=== PATIENT | female | born 1950 | race Caucasian/White ===

== ENCOUNTER 2018-11-17 00:21 | Observation (INO) | payer MEDICARE, OTHER ==
[2018-11-17] MEDS ORDERED: Albuterol/Ipratropium 3.0-0.5 MG/3 ML Neb Soln NEB ONE (00:28)
[2018-11-17] MEDS ORDERED: methylPREDNISolone Sodium Succinate 125 MG/2 ML SDV IVPUSH ONE ×2 (00:28→02:07)
[2018-11-17] MEDS ORDERED: Sodium Chloride 0.9% 1,000 ML IV SCH (00:30)
--- NOTE | 2018-11-17 00:30 | EDM.PDOC ---
ED HPI GENERAL MEDICAL PROBLEM - General Chief Complaint: Respiratory Problem Stated Complaint: AMBULANCE Time Seen by Provider: 11/17/18 00:30 Source of Information: Reports: Patient - History of Present Illness INITIAL COMMENTS - FREE TEXT/NARRATIVE: HISTORY AND PHYSICAL: History of present illness: [Patient arrives via EMS Complains of shortness of breath tripoding on EMS arrival to her home he did provide a neb treatment with improvement wheeze No chest pain headache dizziness palpitation no bowel or urine symptoms no fever nausea vomiting chills sweats ] Review of systems: As per history of present illness and below otherwise all systems reviewed and negative. Past medical history: As per history of present illness and as reviewed below otherwise noncontributory. Surgical history: As per history of present illness and as reviewed below otherwise noncontributory. Social history: No reported history of drug or alcohol abuse. Family history: As per history of present illness and as reviewed below otherwise noncontributory. Physical exam: HEENT: Atraumatic, normocephalic, pupils reactive, negative for conjunctival pallor or scleral icterus, mucous membranes moist, throat clear, neck supple, nontender, trachea midline. Lungs: Clear to auscultation, breath sounds equal bilaterally, chest nontender. Heart: S1S2, regular, negative for clicks, rubs, or JVD. Abdomen: Soft, nondistended, nontender. Negative for masses or hepatosplenomegaly. Negative for costovertebral tenderness. Pelvis: Stable nontender. Genitourinary: Deferred. Rectal: Deferred. Extremities: Atraumatic, negative for cords or calf pain. Neurovascular unremarkable. Neuro: Awake, alert, oriented. Cranial nerves II through XII unremarkable. Cerebellum unremarkable. Motor and sensory unremarkable throughout. Exam nonfocal. Diagnostics: [CBC CMP UA troponin EKG Chest 1 view ] Therapeutics: [Normal saline 1 25 mL per hour Solu-Medrol DuoNeb ] Impression: [ hypoxia Home oxygen dependent generally on 3 L nasal cannula Chronic history of baseline ] Definitive disposition and diagnosis as appropriate pending reevaluation and review of above. - Related Data Allergies Allergy/AdvReac Type Severity Reaction Status Date / Time No Known Allergies Allergy Verified 11/17/18 00:31 Home Meds: Home Meds Allopurinol [Zyloprim] 100 mg PO DAILY 11/17/18 [History] Carvedilol [Coreg] 25 mg PO BID 11/17/18 [History] Furosemide [Lasix] 20 mg PO ASDIRECTED 11/17/18 [History] Simvastatin [Zocor] 40 mg PO BEDTIME 11/17/18 [History] amLODIPine [Norvasc] 2.5 mg DAILY 11/17/18 [History] hydrALAZINE HCl [Hydralazine HCl] 75 mg PO BID 11/17/18 [History] ED ROS GENERAL - Review of Systems Review Of Systems: See Below ED EXAM, GENERAL - Physical Exam Exam: See Below Course - Vital Signs Last Recorded V/S: Last Vital Signs Temp 96.0 F 11/17/18 00:28 Pulse 89 11/17/18 00:28 Resp 26 H 11/17/18 00:28 BP 141/68 H 11/17/18 00:28 Pulse Ox 96 11/17/18 00:28 - Orders/Labs/Meds Orders: Active Orders 24 hr Category Date Time Status EKG Documentation Completion [RC] STAT Care 11/17/18 00:28 Active RT Aerosol Therapy [RC] ASDIRECTED Care 11/17/18 00:28 Active Chest 1V Frontal [CR] Stat Exams 11/17/18 00:28 Taken B-TYPE NATRIURETIC PEPTIDE,BNP [CHEM] Stat Lab 11/17/18 00:40 Received CULTURE BLOOD [BC] Stat Lab 11/17/18 00:40 Received CULTURE BLOOD [BC] Stat Lab 11/17/18 00:51 Received Sodium Chloride 0.9% [Normal Saline] 1,000 ml Med 11/17/18 00:30 Active IV STAT Blood Culture x2 Reflex Set [OM.PC] Stat Oth 11/17/18 00:28 Ordered Medication Orders Sodium Chloride (Normal Saline) 1,000 mls @ 125 mls/hr IV STAT ROSANNE Last Admin: 11/17/18 00:37 Dose: 125 mls/hr Labs: Laboratory Tests 11/17/18 11/17/18 11/17/18 Range/Units 00:28 00:40 00:40 WBC 10.71 (4.0-11.0) K/uL RBC 3.98 L (4.30-5.90) M/uL Hgb 10.9 L (12.0-16.0) g/dL Hct 37.2 (36.0-46.0) % MCV 93.5 (80.0-98.0) fL MCH 27.4 (27.0-32.0) pg MCHC 29.3 L (31.0-37.0) g/dL RDW Std Deviation 47.2 (28.0-62.0) fl RDW Coeff of Izabela 14 (11.0-15.0) % Plt Count 351 (150-400) K/uL MPV 9.80 (7.40-12.00) fL Neut % (Auto) 77.9 (48.0-80.0) % Lymph % (Auto) 10.1 L (16.0-40.0) % [place] % (Auto) 7.4 (0.0-15.0) % Eos % (Auto) 4.2 (0.0-7.0) % Baso % (Auto) 0.4 (0.0-1.5) % Neut # (Auto) 8.4 H (1.4-5.7) K/uL Lymph # (Auto) 1.1 (0.6-2.4) K/uL [place] # (Auto) 0.8 (0.0-0.8) K/uL Eos # (Auto) 0.5 (0.0-0.7) K/uL Baso # (Auto) 0.0 (0.0-0.1) K/uL INR 0.91 Sodium (136-145) mmol/L Potassium (3.5-5.1) mmol/L Chloride (98-107) mmol/L Carbon Dioxide (21.0-32.0) mmol/L BUN (7.0-18.0) mg/dL Creatinine (0.6-1.0) mg/dL Est Cr Clr Drug Dosing mL/min Estimated GFR (MDRD) ml/min Glucose (74-106) mg/dL Calcium (8.5-10.1) mg/dL Total Bilirubin (0.2-1.0) mg/dL AST (15-37) IU/L ALT (14-63) IU/L Alkaline Phosphatase (46-116) U/L Troponin I (0.000-0.056) ng/mL Total Protein (6.4-8.2) g/dL Albumin (3.4-5.0) g/dL Globulin (2.6-4.0) g/dL Albumin/Globulin Ratio (0.9-1.6) Urine Color YELLOW Urine Appearance SLT CLOUDY Urine pH 6.0 (5.0-8.0) Ur Specific [place] >= 1.030 (1.001-1.035) Urine Protein 100 H (NEGATIVE) mg/dL Urine Glucose (UA) NEGATIVE (NEGATIVE) mg/dL Urine Ketones NEGATIVE (NEGATIVE) mg/dL Urine Occult Blood NEGATIVE (NEGATIVE) Urine Nitrite NEGATIVE (NEGATIVE) Urine Bilirubin SMALL H (NEGATIVE) Urine Ictotest NEGATIVE Urine Urobilinogen 0.2 (<2.0) EU/dL Ur Leukocyte Esterase NEGATIVE (NEGATIVE) Urine RBC 1-2 (0-2/HPF) Urine WBC 1-2 (0-5/HPF) Ur Epithelial Cells FEW (NONE-FEW) Amorphous Sediment LIGHT (NEGATIVE) Urine Bacteria FEW (NEGATIVE) 11/17/18 Range/Units 00:40 WBC (4.0-11.0) K/uL RBC (4.30-5.90) M/uL Hgb (12.0-16.0) g/dL Hct (36.0-46.0) % MCV (80.0-98.0) fL MCH (27.0-32.0) pg MCHC (31.0-37.0) g/dL RDW Std Deviation (28.0-62.0) fl RDW Coeff of Izabela (11.0-15.0) % Plt Count (150-400) K/uL MPV (7.40-12.00) fL Neut % (Auto) (48.0-80.0) % Lymph % (Auto) (16.0-40.0) % [place] % (Auto) (0.0-15.0) % Eos % (Auto) (0.0-7.0) % Baso % (Auto) (0.0-1.5) % Neut # (Auto) (1.4-5.7) K/uL Lymph # (Auto) (0.6-2.4) K/uL [place] # (Auto) (0.0-0.8) K/uL Eos # (Auto) (0.0-0.7) K/uL Baso # (Auto) (0.0-0.1) K/uL INR Sodium 142 (136-145) mmol/L Potassium 4.9 (3.5-5.1) mmol/L Chloride 104 (98-107) mmol/L Carbon Dioxide 30.3 (21.0-32.0) mmol/L BUN 32 H (7.0-18.0) mg/dL Creatinine 2.0 H (0.6-1.0) mg/dL Est Cr Clr Drug Dosing 22.27 mL/min Estimated GFR (MDRD) 24.8 ml/min Glucose 218 H (74-106) mg/dL Calcium 9.3 (8.5-10.1) mg/dL Total Bilirubin 0.4 (0.2-1.0) mg/dL AST 9 L (15-37) IU/L ALT 13 L (14-63) IU/L Alkaline Phosphatase 109 (46-116) U/L Troponin I 0.054 (0.000-0.056) ng/mL Total Protein 7.8 (6.4-8.2) g/dL Albumin 3.0 L (3.4-5.0) g/dL Globulin 4.8 H (2.6-4.0) g/dL Albumin/Globulin Ratio 0.6 L (0.9-1.6) Urine Color Urine Appearance Urine pH (5.0-8.0) Ur Specific [place] (1.001-1.035) Urine Protein (NEGATIVE) mg/dL Urine Glucose (UA) (NEGATIVE) mg/dL Urine Ketones (NEGATIVE) mg/dL Urine Occult Blood (NEGATIVE) Urine Nitrite (NEGATIVE) Urine Bilirubin (NEGATIVE) Urine Ictotest Urine Urobilinogen (<2.0) EU/dL Ur Leukocyte Esterase (NEGATIVE) Urine RBC (0-2/HPF) Urine WBC (0-5/HPF) Ur Epithelial Cells (NONE-FEW) Amorphous Sediment (NEGATIVE) Urine Bacteria (NEGATIVE) Meds: Medications Generic Name Dose Route Start Last Admin Trade Name Freq PRN Reason Stop Dose Admin Sodium Chloride 1,000 mls @ 125 mls/hr 11/17/18 00:30 11/17/18 00:37 Normal Saline IV 125 mls/hr STAT ROSANNE Administration Discontinued Medications Generic Name Dose Route Start Last Admin Trade Name Freq PRN Reason Stop Dose Admin Albuterol/Ipratropium 3 ml 11/17/18 00:28 11/17/18 00:37 Duoneb 3.0-0.5 Mg/3 Ml NEB 11/17/18 00:29 3 ml ONETIME ONE Administration Methylprednisolone Sodium Succinate 125 mg 11/17/18 00:28 11/17/18 00:37 Solu-Medrol IVPUSH 11/17/18 00:29 125 mg ONETIME ONE Administration Departure - Departure Time of Disposition: 01:40 Disposition: Refer to Observation Condition: Fair Clinical Impression: COPD exacerbation, Hypoxia - Discharge Information Referrals: Dewayne Denis MD [Primary Care Provider] - Forms: ED Department Discharge - My Orders Last 24 Hours: My Active Orders 11/17/18 00:28 EKG Documentation Completion [RC] STAT RT Aerosol Therapy [RC] ASDIRECTED Chest 1V Frontal [CR] Stat Blood Culture x2 Reflex Set [OM.PC] Stat 11/17/18 00:30 Sodium Chloride 0.9% [Normal Saline] 1,000 ml IV STAT 11/17/18 00:40 B-TYPE NATRIURETIC PEPTIDE,BNP [CHEM] Stat CULTURE BLOOD [BC] Stat 11/17/18 00:51 CULTURE BLOOD [BC] Stat - Assessment/Plan Last 24 Hours: My Active Orders 11/17/18 00:28 EKG Documentation Completion [RC] STAT RT Aerosol Therapy [RC] ASDIRECTED Chest 1V Frontal [CR] Stat Blood Culture x2 Reflex Set [OM.PC] Stat 11/17/18 00:30 Sodium Chloride 0.9% [Normal Saline] 1,000 ml IV STAT 11/17/18 00:40 B-TYPE NATRIURETIC PEPTIDE,BNP [CHEM] Stat CULTURE BLOOD [BC] Stat 11/17/18 00:51 CULTURE BLOOD [BC] Stat
[2018-11-17] MEDS ORDERED: Morphine 2 MG/ML Syringe IVPUSH ONE (02:07)
[2018-11-17] MEDS ORDERED: Azithromycin 500 MG in Sodium Chloride 0.9% 250 ML IV ONE (02:27)
[2018-11-17] MEDS ORDERED: cefTRIAXone 1 GM Vial IM ONE (02:27)
[2018-11-17] MEDS ORDERED: cefTRIAXone 1 GM in Premix Bag 1 BAG IV ONE (02:30)
[2018-11-17] MEDS ORDERED: Acetaminophen 325 MG Tab PO PRN (03:23)
[2018-11-17] MEDS ORDERED: oxyCODONE 5 MG Tab PO PRN (03:24)
[2018-11-17] MEDS ORDERED: Temazepam 15 MG Cap PO PRN (03:24)
--- NOTE | 2018-11-17 07:49 | PCM.HP ---
H&P History of Present Illness - General Date of Service: 11/17/18 Admit Problem/Dx: Admission Diagnosis/Problem Admission Diagnosis/Problem Hypoxia Source of Information: Patient, Old Records History Limitations: Reports: No Limitations - History of Present Illness Initial Comments - Free Text/Narative: The patient is a 68-year-old lady who presented to the emergency department with a complaint of shortness of breath. She has known COPD secondary to cigarette smoking likely and has stopped smoking one year ago. The patient reported that she had worsening shortness of breath over the past couple of days and her oxygen demands at home have increased. The patient says that she her illness that started out as her upper respiratory type infection. She has denied any fever or chills. She normally uses oxygen 24 hours a day between 2 and 3 L daily. The patient says that she has been compliant with her medications. She has had contact with sick people. Onset of Symptoms: Reports: Gradual Duration of Symptoms: Reports: Day(s):, Getting Worse Severity: Moderate Improves with: Reports: Rest Worsens with: Reports: Breathing, Movement Context: Reports: Sick Contact - Related Data Allergies/Adverse Reactions: Allergies Allergy/AdvReac Type Severity Reaction Status Date / Time No Known Allergies Allergy Verified 11/17/18 00:31 Home Medications: Home Meds Allopurinol [Zyloprim] 100 mg PO DAILY 11/17/18 [History] Carvedilol [Coreg] 25 mg PO BID 11/17/18 [History] Furosemide [Lasix] 20 mg PO ASDIRECTED 11/17/18 [History] Simvastatin [Zocor] 40 mg PO BEDTIME 11/17/18 [History] amLODIPine [Norvasc] 2.5 mg DAILY 11/17/18 [History] hydrALAZINE HCl [Hydralazine HCl] 75 mg PO BID 11/17/18 [History] Past Medical History HEENT History: Reports: Impaired Vision Cardiovascular History: Reports: High Cholesterol, Hypertension, Stents Respiratory History: Reports: COPD Gastrointestinal History: Reports: None Genitourinary History: Reports: None 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: Musculoskeletal History: Reports: None Neurological History: Reports: None Psychiatric History: Reports: None Endocrine/Metabolic History: Reports: None Hematologic History: Reports: None Immunologic History: Reports: None Oncologic (Cancer) History: Reports: None Dermatologic History: Reports: None - Infectious Disease History Infectious Disease History: Reports: Chicken Pox, Measles, Mumps - Past Surgical History GI Surgical History: Reports: Cholecystectomy Social & Family History - Family History Family Medical History: Noncontributory - Tobacco Use Smoking Status *Q: Former Smoker Used Tobacco, but Quit: Yes Month/Year Tobacco Last Used: unknown - Caffeine Use Caffeine Use: Reports: None - Recreational Drug Use Recreational Drug Use: No - Living Situation & Occupation Living situation: Reports: , with Family Occupation: Retired H&P Review of Systems - Review of Systems: Review Of Systems: See Below General: Reports: Weakness, Fatigue, Diaphoresis HEENT: Reports: No Symptoms Pulmonary: Reports: Shortness of Breath, Wheezing, Cough. Denies: Sputum, Hemoptysis Cardiovascular: Reports: No Symptoms Gastrointestinal: Reports: No Symptoms Genitourinary: Reports: No Symptoms Musculoskeletal: Reports: No Symptoms Skin: Reports: Diaphoresis Psychiatric: Reports: No Symptoms Neurological: Reports: No Symptoms Hematologic/Lymphatic: Reports: No Symptoms Immunologic: Reports: No Symptoms Exam - Exam Exam: See Below - Vital Signs Vital Signs: Last Vital Signs Temp 36.1 C 11/17/18 07:46 Pulse 85 11/17/18 07:46 Resp 19 11/17/18 07:46 BP 133/57 L 11/17/18 07:46 Pulse Ox 96 11/17/18 07:46 Weight: 64.682 kg - Exam Quality Assessment: Supplemental Oxygen General: Alert (Appears older than stated age), Oriented, Cooperative HEENT: Conjunctiva Clear, EACs Clear, EOMI. No: Mucosa Moist & [place] (dry) Neck: Supple, Trachea Midline Lungs: Decreased Breath Sounds, Crackles, Rales. No: Normal Respiratory Effort Cardiovascular: Regular Rate, Regular Rhythm GI/Abdominal Exam: Normal Bowel Sounds, Soft, Non-Tender, No Distention (Female) Exam: Deferred Rectal (Female) Exam: Deferred Back Exam: Normal Inspection, Full Range of Motion Extremities: Normal Inspection, No Pedal Edema Skin: Warm, Intact, Moist Neurological: Cranial Nerves Intact Psychiatric: Alert, Normal Affect, Normal Mood - Patient Data Lab Results Last 24 hrs: Laboratory Results - last 24 hr 11/17/18 11/17/18 11/17/18 Range/Units 00:28 00:40 00:40 WBC 10.71 (4.0-11.0) K/uL RBC 3.98 L (4.30-5.90) M/uL Hgb 10.9 L (12.0-16.0) g/dL Hct 37.2 (36.0-46.0) % MCV 93.5 (80.0-98.0) fL MCH 27.4 (27.0-32.0) pg MCHC 29.3 L (31.0-37.0) g/dL RDW Std Deviation 47.2 (28.0-62.0) fl RDW Coeff of Izabela 14 (11.0-15.0) % Plt Count 351 (150-400) K/uL MPV 9.80 (7.40-12.00) fL Neut % (Auto) 77.9 (48.0-80.0) % Lymph % (Auto) 10.1 L (16.0-40.0) % [place] % (Auto) 7.4 (0.0-15.0) % Eos % (Auto) 4.2 (0.0-7.0) % Baso % (Auto) 0.4 (0.0-1.5) % Neut # (Auto) 8.4 H (1.4-5.7) K/uL Lymph # (Auto) 1.1 (0.6-2.4) K/uL [place] # (Auto) 0.8 (0.0-0.8) K/uL Eos # (Auto) 0.5 (0.0-0.7) K/uL Baso # (Auto) 0.0 (0.0-0.1) K/uL INR 0.91 Sodium (136-145) mmol/L Potassium (3.5-5.1) mmol/L Chloride (98-107) mmol/L Carbon Dioxide (21.0-32.0) mmol/L BUN (7.0-18.0) mg/dL Creatinine (0.6-1.0) mg/dL Est Cr Clr Drug Dosing mL/min Estimated GFR (MDRD) ml/min Glucose (74-106) mg/dL Calcium (8.5-10.1) mg/dL Total Bilirubin (0.2-1.0) mg/dL AST (15-37) IU/L ALT (14-63) IU/L Alkaline Phosphatase (46-116) U/L Troponin I (0.000-0.056) ng/mL B-Natriuretic Peptide (<100) PG/ML Total Protein (6.4-8.2) g/dL Albumin (3.4-5.0) g/dL Globulin (2.6-4.0) g/dL Albumin/Globulin Ratio (0.9-1.6) Urine Color YELLOW Urine Appearance SLT CLOUDY Urine pH 6.0 (5.0-8.0) Ur Specific [place] >= 1.030 (1.001-1.035) Urine Protein 100 H (NEGATIVE) mg/dL Urine Glucose (UA) NEGATIVE (NEGATIVE) mg/dL Urine Ketones NEGATIVE (NEGATIVE) mg/dL Urine Occult Blood NEGATIVE (NEGATIVE) Urine Nitrite NEGATIVE (NEGATIVE) Urine Bilirubin SMALL H (NEGATIVE) Urine Ictotest NEGATIVE Urine Urobilinogen 0.2 (<2.0) EU/dL Ur Leukocyte Esterase NEGATIVE (NEGATIVE) Urine RBC 1-2 (0-2/HPF) Urine WBC 1-2 (0-5/HPF) Ur Epithelial Cells FEW (NONE-FEW) Amorphous Sediment LIGHT (NEGATIVE) Urine Bacteria FEW (NEGATIVE) 11/17/18 11/17/18 Range/Units 00:40 00:40 WBC (4.0-11.0) K/uL RBC (4.30-5.90) M/uL Hgb (12.0-16.0) g/dL Hct (36.0-46.0) % MCV (80.0-98.0) fL MCH (27.0-32.0) pg MCHC (31.0-37.0) g/dL RDW Std Deviation (28.0-62.0) fl RDW Coeff of Izabela (11.0-15.0) % Plt Count (150-400) K/uL MPV (7.40-12.00) fL Neut % (Auto) (48.0-80.0) % Lymph % (Auto) (16.0-40.0) % [place] % (Auto) (0.0-15.0) % Eos % (Auto) (0.0-7.0) % Baso % (Auto) (0.0-1.5) % Neut # (Auto) (1.4-5.7) K/uL Lymph # (Auto) (0.6-2.4) K/uL [place] # (Auto) (0.0-0.8) K/uL Eos # (Auto) (0.0-0.7) K/uL Baso # (Auto) (0.0-0.1) K/uL INR Sodium 142 (136-145) mmol/L Potassium 4.9 (3.5-5.1) mmol/L Chloride 104 (98-107) mmol/L Carbon Dioxide 30.3 (21.0-32.0) mmol/L BUN 32 H (7.0-18.0) mg/dL Creatinine 2.0 H (0.6-1.0) mg/dL Est Cr Clr Drug Dosing 22.27 mL/min Estimated GFR (MDRD) 24.8 ml/min Glucose 218 H (74-106) mg/dL Calcium 9.3 (8.5-10.1) mg/dL Total Bilirubin 0.4 (0.2-1.0) mg/dL AST 9 L (15-37) IU/L ALT 13 L (14-63) IU/L Alkaline Phosphatase 109 (46-116) U/L Troponin I 0.054 (0.000-0.056) ng/mL B-Natriuretic Peptide 29 (<100) PG/ML Total Protein 7.8 (6.4-8.2) g/dL Albumin 3.0 L (3.4-5.0) g/dL Globulin 4.8 H (2.6-4.0) g/dL Albumin/Globulin Ratio 0.6 L (0.9-1.6) Urine Color Urine Appearance Urine pH (5.0-8.0) Ur Specific [place] (1.001-1.035) Urine Protein (NEGATIVE) mg/dL Urine Glucose (UA) (NEGATIVE) mg/dL Urine Ketones (NEGATIVE) mg/dL Urine Occult Blood (NEGATIVE) Urine Nitrite (NEGATIVE) Urine Bilirubin (NEGATIVE) Urine Ictotest Urine Urobilinogen (<2.0) EU/dL Ur Leukocyte Esterase (NEGATIVE) Urine RBC (0-2/HPF) Urine WBC (0-5/HPF) Ur Epithelial Cells (NONE-FEW) Amorphous Sediment (NEGATIVE) Urine Bacteria (NEGATIVE) Result Diagrams: 11/17/18 00:40 11/17/18 00:40 - Problem List (1) Acute on chronic respiratory failure SNOMED Code(s): 77878691 ICD Code: J96.20 - ACUTE AND CHR RESP FAILURE, UNSP W HYPOXIA OR HYPERCAPNIA Status: Acute Priority: High Current Visit: Yes Qualifiers: Respiratory failure complication: hypoxia Qualified Code(s): J96.21 - Acute and chronic respiratory failure with hypoxia (2) Hyperglycemia SNOMED Code(s): 41808112 ICD Code: R73.9 - HYPERGLYCEMIA, UNSPECIFIED Status: Acute Priority: High Current Visit: Yes (3) COPD exacerbation SNOMED Code(s): 935530961 ICD Code: J44.1 - CHRONIC OBSTRUCTIVE PULMONARY DISEASE W (ACUTE) EXACERBATION Status: Chronic Priority: High Current Visit: Yes (4) Hypoxia SNOMED Code(s): 910557239 ICD Code: R09.02 - HYPOXEMIA Status: Acute Current Visit: Yes Problem List Initiated/Reviewed/Updated: Yes Orders Last 24hrs: Active Orders 24 hr Category Date Time Status Admission Status [Patient Status] [ADT] Stat ADT 11/17/18 01:40 Active EKG Documentation Completion [RC] STAT Care 11/17/18 00:28 Active Influenza Vaccine Charge [RC] .DISCHARGE Care 11/17/18 02:54 Active Oxygen Therapy [RC] ASDIRECTED Care 11/17/18 03:19 Active RT Aerosol Therapy [RC] ASDIRECTED Care 11/17/18 03:21 Active Cardiac [Heart Healthy Diet] [DIET] Diet 11/17/18 Breakfast Active Chest 1V Frontal [CR] Stat Exams 11/17/18 00:28 Taken CULTURE BLOOD [BC] Stat Lab 11/17/18 00:40 Received CULTURE BLOOD [BC] Stat Lab 11/17/18 00:51 Received Acetaminophen [Tylenol] Med 11/17/18 03:23 Active 650 mg PO Q6H PRN Albuterol/Ipratropium [DuoNeb 3.0-0.5 MG/3 ML] Med 11/17/18 03:21 Active 3 ml NEB Q4HRRT PRN Azithromycin [Zithromax] 500 mg Med 11/18/18 03:00 Active Sodium Chloride 0.9% [Normal Saline] 250 ml IV Q24H FLU Vacc [id number](65YR UP)/PF [Fluzone High-Dose 2018- Med 11/17/18 09:00 Once 19 Syringe] 180 mcg IM .ONCE ONE Pneumococcal Polyvalent-23 Vac [Pneumovax 23] Med 11/17/18 09:00 Once 0.5 ml IM .ONCE ONE Sodium Chloride 0.9% [Normal Saline] 1,000 ml Med 11/17/18 03:15 Active IV ASDIRECTED Temazepam [Restoril] Med 11/17/18 03:24 Active 15 mg PO BEDTIME PRN methylPREDNISolone Sod Succ [Solu-MEDROL] Med 11/17/18 09:00 Active 125 mg IVPUSH Q8H oxyCODONE Med 11/17/18 03:24 Active 5 mg PO Q4H PRN Blood Culture x2 Reflex Set [OM.PC] Stat Oth 11/17/18 00:28 Ordered Medication Orders Acetaminophen (Tylenol) 650 mg PO Q6H PRN PRN Reason: Pain Albuterol/Ipratropium (Duoneb 3.0-0.5 Mg/3 Ml) 3 ml NEB Q4HRRT PRN PRN Reason: Wheezing Sodium Chloride (Normal Saline) 1,000 mls @ 75 mls/hr IV ASDIRECTED ROSANNE Azithromycin 500 mg/ Sodium (Chloride) 250 mls @ 250 mls/hr IV Q24H ROSANNE Influenza Virus Vaccine (Fluzone High-Dose Syringe) 180 mcg IM .ONCE ONE Stop: 11/17/18 09:01 Methylprednisolone Sodium Succinate (Solu-Medrol) 125 mg IVPUSH Q8H ROSANNE Oxycodone HCl (Oxycodone) 5 mg PO Q4H PRN PRN Reason: Pain Pneumococcal Polyvalent Vaccine (Pneumovax 23) 0.5 ml IM .ONCE ONE Stop: 11/17/18 09:01 Temazepam (Restoril) 15 mg PO BEDTIME PRN PRN Reason: Sleep Assessment/Plan Comment:: The patient is a 68-year-old lady who has been admitted secondary to COPD exacerbation. The patient will have her oxygen adjusted so we keep her saturations around 92%. She also be noted the patient has been severely hyperglycemic and as a result of this I ordered hemoglobin A1c to help exclude diabetes mellitus. The hyperglycemic episode may be secondary to steroid usage however will follow with hemoglobin A1c. She also be kept on azithromycin 500 mg IV on a daily basis. Patient has been encouraged to ambulate. She also has been placed on Lovenox for DVT prophylaxis. The patient also be monitored with further laboratory testing and if she has significant improvement in next 1-2 days she should be appropriate for discharge home.
[2018-11-17] MEDS ORDERED: Docusate Sodium 100 MG Cap PO PRN (08:54)
[2018-11-17] MEDS ORDERED: Pneumococcal Polyvalent-23 Vaccine 0.5 ML SDV IM ONE (09:00)
[2018-11-17] MEDS: hydrALAZINE 25 MG Tab PO SCH ×2 (10:13→20:23)
[2018-11-17] MEDS: Allopurinol 100 MG Tab PO SCH (10:14)
[2018-11-17] MEDS: amLODIPine 2.5 MG Tab PO SCH (10:14)
[2018-11-17] MEDS: Furosemide 20 MG Tab PO SCH (10:14)
[2018-11-17] MEDS: methylPREDNISolone Sodium Succinate 125 MG/2 ML SDV IVPUSH SCH ×2 (10:15→17:07)
[2018-11-17] MEDS: Carvedilol 25 MG Tab PO SCH ×2 (10:15→20:22)
[2018-11-17 11:00] LABS: HEMOGLOBIN A1C 8.6 % (4.5-6.2)
[2018-11-17] MEDS: Insulin Aspart 100 Units/ML 3 ML Pen SUBCUT SCH ×3 (12:46→20:23)
[2018-11-17] MEDS: Sodium Chloride 0.9% 1,000 ML IV SCH (14:01)
[2018-11-17] MEDS: Heparin Sodium 5,000 Units/ML Vial SUBCUT SCH ×2 (14:25→22:21)
[2018-11-17] MEDS: Albuterol/Ipratropium 3.0-0.5 MG/3 ML Neb Soln NEB PRN ×2 (14:55→22:26)
[2018-11-17] MEDS ORDERED: Insulin Aspart 100 Units/ML 3 ML Pen SUBCUT SCH ×2 (17:00)
[2018-11-17] MEDS ORDERED: Simvastatin 40 MG Tab PO SCH (21:00)
[2018-11-18] MEDS: methylPREDNISolone Sodium Succinate 125 MG/2 ML SDV IVPUSH SCH ×2 (00:47→08:54)
[2018-11-18] MEDS ORDERED: Azithromycin 500 MG in Sodium Chloride 0.9% 250 ML IV SCH ×2 (03:00→09:41)
[2018-11-18] MEDS: Albuterol/Ipratropium 3.0-0.5 MG/3 ML Neb Soln NEB PRN (03:25)
[2018-11-18] MEDS: Sodium Chloride 0.9% 1,000 ML IV SCH (03:28)
[2018-11-18] MEDS: Heparin Sodium 5,000 Units/ML Vial SUBCUT SCH (06:18)
[2018-11-18] MEDS: Carvedilol 25 MG Tab PO SCH (08:28)
[2018-11-18] MEDS: Furosemide 20 MG Tab PO SCH (08:28)
[2018-11-18] MEDS: amLODIPine 2.5 MG Tab PO SCH (08:29)
[2018-11-18] MEDS: Allopurinol 100 MG Tab PO SCH (08:29)
[2018-11-18] MEDS: hydrALAZINE 25 MG Tab PO SCH (08:30)
[2018-11-18] MEDS: Insulin Aspart 100 Units/ML 3 ML Pen SUBCUT SCH (08:57)
[2018-11-18] MEDS ORDERED: Budesonide/Formoterol 160-4.5 MCG/Puff 6 GM Inhaler INH SCH ×2 (09:00)
--- NOTE | 2018-11-18 09:46 | PCM.DCSUM1 ---
Addendum entered and electronically signed by Cyn Dodd NP 11/18/18 10:13 : Discharge Summary - Hospital Course Free Text/Narrative:: Discussed signs and symptoms of hypoglycemia to monitor for, at bedside as well. Brief History: This 68 year old female with pmh of HTN, CKD, COPD who is oxygen dependent, and hx tobacco abuse presented to the emergency department with a complaint of shortness of breath. The patient reported that she had worsening shortness of breath over the past couple of days and her oxygen demands at home have increased. The patient says that she her illness that started out as her upper respiratory type infection. She has denied any fever or chills. She normally uses oxygen 24 hours a day between 2 and 3 L daily. The patient says that she has been compliant with her medications. She has had contact with sick people. Diagnosis: Stroke: No - Discharge Data Discharge Date: 11/18/18 Discharge Disposition: Home, Self-Care 01 Condition: Good - Discharge Diagnosis/Problem(s) (1) New onset type 2 diabetes mellitus SNOMED Code(s): 00106561 ICD Code: E11.9 - TYPE 2 DIABETES MELLITUS WITHOUT COMPLICATIONS Status: Acute Current Visit: Yes (2) Oxygen dependent SNOMED Code(s): 469921551305 ICD Code: Z99.81 - DEPENDENCE ON SUPPLEMENTAL OXYGEN Status: Acute Current Visit: Yes (3) History of tobacco abuse SNOMED Code(s): 333172116, 393711150 ICD Code: Z87.891 - PERSONAL HISTORY OF NICOTINE DEPENDENCE Status: Acute Current Visit: Yes (4) Acute on chronic respiratory failure SNOMED Code(s): 10436090 ICD Code: J96.20 - ACUTE AND CHR RESP FAILURE, UNSP W HYPOXIA OR HYPERCAPNIA Status: Acute Priority: High Current Visit: Yes Qualifiers: Respiratory failure complication: hypoxia Qualified Code(s): J96.21 - Acute and chronic respiratory failure with hypoxia (5) Hyperglycemia SNOMED Code(s): 57925991 ICD Code: R73.9 - HYPERGLYCEMIA, UNSPECIFIED Status: Acute Priority: High Current Visit: Yes (6) Hypoxia SNOMED Code(s): 992173998 ICD Code: R09.02 - HYPOXEMIA Status: Acute Current Visit: Yes (7) COPD exacerbation SNOMED Code(s): 782625518 ICD Code: J44.1 - CHRONIC OBSTRUCTIVE PULMONARY DISEASE W (ACUTE) EXACERBATION Status: Chronic Priority: High Current Visit: Yes - Patient Summary/Data Consults: Consultations 11/18/18 06:53 Consult to [employer] Moulder'S Assistant [Consult to Diabetic Nurse Specialist] [CONS] Routine - Patient Instructions Diet: Diabetic Diet Activity: As Tolerated Showering/Bathing: May Shower Notify Provider of: Fever, Increased Pain, Swelling and Redness, Drainage, Nausea and/or Vomiting Other/Special Instructions: Monitor Blood glucose daily before eating breakfast. Monitor for signs of hypoglycemia, low blood sugar. - Discharge Plan *PRESCRIPTION DRUG MONITORING PROGRAM REVIEWED*: Not Applicable *COPY OF PRESCRIPTION DRUG MONITORING REPORT IN PATIENT BIGG: Not Applicable Prescriptions/Med Rec: Azithromycin 500 mg PO DAILY #5 tablet glipiZIDE [Glipizide Xl] 2.5 mg PO DAILY #30 tab.er.24 predniSONE 10 - 40 mg PO .TAPER #30 tab Home Medications: Home Meds Allopurinol [Zyloprim] 100 mg PO DAILY 11/17/18 [History] Carvedilol [Coreg] 25 mg PO BID 11/17/18 [History] Furosemide [Lasix] 20 mg PO ASDIRECTED 11/17/18 [History] Simvastatin [Zocor] 40 mg PO BEDTIME 11/17/18 [History] amLODIPine [Norvasc] 2.5 mg DAILY 11/17/18 [History] hydrALAZINE HCl [Hydralazine HCl] 75 mg PO BID 11/17/18 [History] Azithromycin 500 mg PO DAILY #5 tablet 11/18/18 [Rx] Budesonide/Formoterol [Symbicort 160-4.5 MCG] 2 puff INH BID 11/18/18 [History] glipiZIDE [Glipizide Xl] 2.5 mg PO DAILY #30 tab.er.24 11/18/18 [Rx] predniSONE 10 - 40 mg PO .TAPER #30 tab 11/18/18 [Rx] Oxygen Therapy Mode: Nasal Cannula Patient Handouts: Glipizide tablets, Hypoxia, Type 2 Diabetes Mellitus, Diagnosis, Adult, Azithromycin tablets, Type 2 Diabetes Mellitus, Self Care, Adult, Prednisone tablets, Hypoglycemia, [id number] Referrals: Dewayne Denis MD [Primary Care Provider] - 11/28/18 9:00 am (follow up 1 week. also arrange follow up with Dm educator) - Discharge Summary/Plan Comment DC Time >30 min.: No - Patient Data Vitals - Most Recent: Last Vital Signs Temp 97.2 F 11/18/18 08:00 Pulse 83 11/18/18 08:28 Resp 18 11/18/18 08:00 BP 149/70 H 11/18/18 08:30 Pulse Ox 96 11/18/18 08:00 Weight - Most Recent: 64.682 kg I&O - Last 24 hours: Intake & Output 11/17/18 11/18/18 11/18/18 22:59 06:59 14:59 Intake Total 1406 1368 Output Total 600 500 Balance 806 868 Lab Results - Last 24 hrs: Laboratory Results - last 24 hr 11/17/18 11/17/18 11/17/18 Range/Units 10:45 12:11 17:00 WBC (4.0-11.0) K/uL RBC (4.30-5.90) M/uL Hgb (12.0-16.0) g/dL Hct (36.0-46.0) % MCV (80.0-98.0) fL MCH (27.0-32.0) pg MCHC (31.0-37.0) g/dL RDW Std Deviation (28.0-62.0) fl RDW Coeff of Izabela (11.0-15.0) % Plt Count (150-400) K/uL MPV (7.40-12.00) fL Neut % (Auto) (48.0-80.0) % Lymph % (Auto) (16.0-40.0) % Falls % (Auto) (0.0-15.0) % Eos % (Auto) (0.0-7.0) % Baso % (Auto) (0.0-1.5) % Neut # (Auto) (1.4-5.7) K/uL Lymph # (Auto) (0.6-2.4) K/uL Falls # (Auto) (0.0-0.8) K/uL Eos # (Auto) (0.0-0.7) K/uL Baso # (Auto) (0.0-0.1) K/uL Nucleated RBC % /100WBC Nucleated RBCs # K/uL Sodium (136-145) mmol/L Potassium (3.5-5.1) mmol/L Chloride (98-107) mmol/L Carbon Dioxide (21.0-32.0) mmol/L BUN (7.0-18.0) mg/dL Creatinine (0.6-1.0) mg/dL Est Cr Clr Drug Dosing mL/min Estimated GFR (MDRD) ml/min Glucose (74-106) mg/dL POC Glucose 377 H 376 H (60-110) mg/dL Hemoglobin A1c 8.6 H (4.5-6.2) % Calcium (8.5-10.1) mg/dL Total Bilirubin (0.2-1.0) mg/dL AST (15-37) IU/L ALT (14-63) IU/L Alkaline Phosphatase (46-116) U/L Total Protein (6.4-8.2) g/dL Albumin (3.4-5.0) g/dL Globulin (2.6-4.0) g/dL Albumin/Globulin Ratio (0.9-1.6) 11/17/18 11/18/18 11/18/18 Range/Units 21:28 00:45 05:34 WBC 12.69 H (4.0-11.0) K/uL RBC 3.61 L (4.30-5.90) M/uL Hgb 9.9 L (12.0-16.0) g/dL Hct 32.0 L (36.0-46.0) % MCV 88.6 (80.0-98.0) fL MCH 27.4 (27.0-32.0) pg MCHC 30.9 L (31.0-37.0) g/dL RDW Std Deviation 46.8 (28.0-62.0) fl RDW Coeff of Izabela 14 (11.0-15.0) % Plt Count 333 (150-400) K/uL MPV 9.90 (7.40-12.00) fL Neut % (Auto) 90.5 H (48.0-80.0) % Lymph % (Auto) 7.5 L (16.0-40.0) % Falls % (Auto) 1.9 (0.0-15.0) % Eos % (Auto) 0.0 (0.0-7.0) % Baso % (Auto) 0.1 (0.0-1.5) % Neut # (Auto) 11.5 H (1.4-5.7) K/uL Lymph # (Auto) 1.0 (0.6-2.4) K/uL Falls # (Auto) 0.2 (0.0-0.8) K/uL Eos # (Auto) 0.0 (0.0-0.7) K/uL Baso # (Auto) 0.0 (0.0-0.1) K/uL Nucleated RBC % 0.0 /100WBC Nucleated RBCs # 0 K/uL Sodium (136-145) mmol/L Potassium (3.5-5.1) mmol/L Chloride (98-107) mmol/L Carbon Dioxide (21.0-32.0) mmol/L BUN (7.0-18.0) mg/dL Creatinine (0.6-1.0) mg/dL Est Cr Clr Drug Dosing mL/min Estimated GFR (MDRD) ml/min Glucose (74-106) mg/dL POC Glucose 452 H 293 H (60-110) mg/dL Hemoglobin A1c (4.5-6.2) % Calcium (8.5-10.1) mg/dL Total Bilirubin (0.2-1.0) mg/dL AST (15-37) IU/L ALT (14-63) IU/L Alkaline Phosphatase (46-116) U/L Total Protein (6.4-8.2) g/dL Albumin (3.4-5.0) g/dL Globulin (2.6-4.0) g/dL Albumin/Globulin Ratio (0.9-1.6) 11/18/18 11/18/18 11/18/18 Range/Units 05:34 06:19 07:29 WBC (4.0-11.0) K/uL RBC (4.30-5.90) M/uL Hgb (12.0-16.0) g/dL Hct (36.0-46.0) % MCV (80.0-98.0) fL MCH (27.0-32.0) pg MCHC (31.0-37.0) g/dL RDW Std Deviation (28.0-62.0) fl RDW Coeff of Izabela (11.0-15.0) % Plt Count (150-400) K/uL MPV (7.40-12.00) fL Neut % (Auto) (48.0-80.0) % Lymph % (Auto) (16.0-40.0) % Falls % (Auto) (0.0-15.0) % Eos % (Auto) (0.0-7.0) % Baso % (Auto) (0.0-1.5) % Neut # (Auto) (1.4-5.7) K/uL Lymph # (Auto) (0.6-2.4) K/uL Falls # (Auto) (0.0-0.8) K/uL Eos # (Auto) (0.0-0.7) K/uL Baso # (Auto) (0.0-0.1) K/uL Nucleated RBC % /100WBC Nucleated RBCs # K/uL Sodium 144 (136-145) mmol/L Potassium 4.6 (3.5-5.1) mmol/L Chloride 109 H (98-107) mmol/L Carbon Dioxide 26.9 (21.0-32.0) mmol/L BUN 41 H (7.0-18.0) mg/dL Creatinine 1.9 H (0.6-1.0) mg/dL Est Cr Clr Drug Dosing 23.44 mL/min Estimated GFR (MDRD) 26.3 ml/min Glucose 244 H (74-106) mg/dL POC Glucose 242 H 252 H (60-110) mg/dL Hemoglobin A1c (4.5-6.2) % Calcium 8.8 (8.5-10.1) mg/dL Total Bilirubin 0.1 L (0.2-1.0) mg/dL AST 11 L (15-37) IU/L ALT 14 (14-63) IU/L Alkaline Phosphatase 88 (46-116) U/L Total Protein 6.6 (6.4-8.2) g/dL Albumin 2.6 L (3.4-5.0) g/dL Globulin 4.0 (2.6-4.0) g/dL Albumin/Globulin Ratio 0.7 L (0.9-1.6) ADENIKE Results - Last 24 hrs: Microbiology 11/17/18 00:51 Aerobic Blood Culture - Preliminary Blood - Venous - Lab Draw NO GROWTH AFTER 1 DAY Anaerobic Blood Culture - Preliminary NO GROWTH AFTER 1 DAY 11/17/18 00:40 Aerobic Blood Culture - Preliminary Blood - Venous NO GROWTH AFTER 1 DAY Anaerobic Blood Culture - Preliminary NO GROWTH AFTER 1 DAY Med Orders - Current: Current Medications Acetaminophen (Tylenol) 650 mg PO Q6H PRN PRN Reason: Pain Albuterol/Ipratropium (Duoneb 3.0-0.5 Mg/3 Ml) 3 ml NEB Q4HRRT PRN PRN Reason: Wheezing Last Admin: 11/18/18 03:25 Dose: 3 ml Allopurinol (Zyloprim) 100 mg PO DAILY [facility] Last Admin: 11/18/18 08:29 Dose: 100 mg Amlodipine Besylate (Norvasc) 2.5 mg PO DAILY [facility] Last Admin: 11/18/18 08:29 Dose: 2.5 mg Carvedilol (Coreg) 25 mg PO BID [facility] Last Admin: 11/18/18 08:28 Dose: 25 mg Docusate Sodium (Colace) 100 mg PO BID PRN PRN Reason: Constipation Last Admin: 11/17/18 12:44 Dose: 100 mg Furosemide (Lasix) 20 mg PO DAILY [facility] Last Admin: 11/18/18 08:28 Dose: 20 mg Heparin Sodium (Porcine) (Heparin Sodium) 5,000 units SUBCUT Q8H [facility] Last Admin: 11/18/18 06:18 Dose: 5,000 units Hydralazine HCl (Apresoline) 75 mg PO BID [facility] Last Admin: 11/18/18 08:30 Dose: 75 mg Azithromycin 500 mg/ Sodium (Chloride) 250 mls @ 250 mls/hr IV Q24H [facility] Insulin Aspart (Novolog) 0 unit SUBCUT QIDACANDBED [facility]; Protocol Last Admin: 11/18/18 08:57 Dose: 6 units Methylprednisolone Sodium Succinate (Solu-Medrol) 125 mg IVPUSH Q8H [facility] Last Admin: 11/18/18 08:54 Dose: 125 mg Oxycodone HCl (Oxycodone) 5 mg PO Q4H PRN PRN Reason: Pain Budesonide/Formoterol 160-4.5 Mcg/Puff 6 Gm Inhaler 1 - 2 each INH BID ROSANNE Simvastatin (Zocor) 40 mg PO BEDTIME [facility] Last Admin: 11/17/18 20:23 Dose: 40 mg Temazepam (Restoril) 15 mg PO BEDTIME PRN PRN Reason: Sleep Discontinued Medications Albuterol/Ipratropium (Duoneb 3.0-0.5 Mg/3 Ml) 3 ml NEB ONETIME ONE Stop: 11/17/18 00:29 Last Admin: 11/17/18 00:37 Dose: 3 ml Budesonide/Formoterol Fumarate (Symbicort 160-4.5 Mcg) 0 gm INH BID ROSANNE Sodium Chloride (Normal Saline) 1,000 mls @ 125 mls/hr IV STAT [facility] Last Admin: 11/17/18 00:37 Dose: 125 mls/hr Azithromycin 500 mg/ Sodium (Chloride) 250 mls @ 250 mls/hr IV ONETIME ONE Stop: 11/17/18 03:26 Last Admin: 11/17/18 03:16 Dose: 250 mls/hr Ceftriaxone Sodium/Dextrose 1 (gm/ Premix) 50 mls @ 100 mls/hr IV ONETIME ONE Stop: 11/17/18 02:59 Last Admin: 11/17/18 02:39 Dose: 100 mls/hr Sodium Chloride (Normal Saline) 1,000 mls @ 75 mls/hr IV ASDIRECTED [facility] Last Admin: 11/18/18 03:28 Dose: 75 mls/hr Azithromycin 500 mg/ Sodium (Chloride) 250 mls @ 250 mls/hr IV Q24H [facility] Last Admin: 11/18/18 03:27 Dose: 250 mls/hr Azithromycin 500 mg/ Sodium (Chloride) 250 mls @ 250 mls/hr IV Q24H [facility] Last Admin: 11/18/18 10:04 Dose: Not Given Influenza Virus Vaccine (Pharmacy To Dose - Influenza Vaccine) 1 each IM ONETIME ONE Stop: 11/17/18 02:55 Influenza Virus Vaccine (Fluzone High-Dose 2017- Syringe) 180 mcg IM .ONCE ONE Stop: 11/17/18 09:01 Last Admin: 11/17/18 12:26 Dose: 180 mcg Insulin Aspart (Novolog) 0 unit SUBCUT TIDAC [facility]; Protocol Insulin Aspart (Novolog) 0 unit SUBCUT QIDACANDBED [facility]ANNE; Protocol Methylprednisolone Sodium Succinate (Solu-Medrol) 125 mg IVPUSH ONETIME ONE Stop: 11/17/18 00:29 Last Admin: 11/17/18 00:37 Dose: 125 mg Methylprednisolone Sodium Succinate (Solu-Medrol) 125 mg IVPUSH ONETIME ONE Stop: 11/17/18 02:08 Last Admin: 11/17/18 02:14 Dose: 125 mg Morphine Sulfate (Morphine) 0.5 mg IVPUSH ONETIME ONE Stop: 11/17/18 02:08 Last Admin: 11/17/18 02:14 Dose: 0.5 mg Pneumococcal Polyvalent Vaccine (Pneumovax 23) 0.5 ml IM .ONCE ONE Stop: 11/17/18 09:01 Last Admin: 11/17/18 12:23 Dose: 0.5 ml Original Note: <JohnsureshCyn M - Last Filed: 11/18/18 10:12> Discharge Summary - Hospital Course Brief History: This 68 year old female with pmh of HTN, CKD, COPD who is oxygen dependent, and hx tobacco abuse presented to the emergency department with a complaint of shortness of breath. The patient reported that she had worsening shortness of breath over the past couple of days and her oxygen demands at home have increased. The patient says that she her illness that started out as her upper respiratory type infection. She has denied any fever or chills. She normally uses oxygen 24 hours a day between 2 and 3 L daily. The patient says that she has been compliant with her medications. She has had contact with sick people. Diagnosis: Stroke: No - Discharge Data Discharge Date: 11/18/18 Discharge Disposition: Home, Self-Care 01 Condition: Good - Discharge Diagnosis/Problem(s) (1) New onset type 2 diabetes mellitus SNOMED Code(s): 01752769 ICD Code: E11.9 - TYPE 2 DIABETES MELLITUS WITHOUT COMPLICATIONS Status: Acute Current Visit: Yes (2) Oxygen dependent SNOMED Code(s): 434067767157 ICD Code: Z99.81 - DEPENDENCE ON SUPPLEMENTAL OXYGEN Status: Acute Current Visit: Yes (3) History of tobacco abuse SNOMED Code(s): 242700496, 084905138 ICD Code: Z87.891 - PERSONAL HISTORY OF NICOTINE DEPENDENCE Status: Acute Current Visit: Yes (4) Acute on chronic respiratory failure SNOMED Code(s): 08106543 ICD Code: J96.20 - ACUTE AND CHR RESP FAILURE, UNSP W HYPOXIA OR HYPERCAPNIA Status: Acute Priority: High Current Visit: Yes Qualifiers: Respiratory failure complication: hypoxia Qualified Code(s): J96.21 - Acute and chronic respiratory failure with hypoxia (5) Hyperglycemia SNOMED Code(s): 63506479 ICD Code: R73.9 - HYPERGLYCEMIA, UNSPECIFIED Status: Acute Priority: High Current Visit: Yes (6) Hypoxia SNOMED Code(s): 861687888 ICD Code: R09.02 - HYPOXEMIA Status: Acute Current Visit: Yes (7) COPD exacerbation SNOMED Code(s): 574879701 ICD Code: J44.1 - CHRONIC OBSTRUCTIVE PULMONARY DISEASE W (ACUTE) EXACERBATION Status: Chronic Priority: High Current Visit: Yes - Patient Summary/Data Consults: Consultations 11/18/18 06:53 Consult to [employer]'S Assistant [Consult to Diabetic Nurse Specialist] [CONS] Routine - Patient Instructions Diet: Diabetic Diet Activity: As Tolerated Showering/Bathing: May Shower Notify Provider of: Fever, Increased Pain, Swelling and Redness, Drainage, Nausea and/or Vomiting Other/Special Instructions: Monitor Blood glucose daily before eating breakfast. Monitor for signs of hypoglycemia, low blood sugar. - Discharge Plan *PRESCRIPTION DRUG MONITORING PROGRAM REVIEWED*: Not Applicable *COPY OF PRESCRIPTION DRUG MONITORING REPORT IN PATIENT BIGG: Not Applicable Prescriptions/Med Rec: Azithromycin 500 mg PO DAILY #5 tablet glipiZIDE [Glipizide Xl] 2.5 mg PO DAILY #30 tab.er.24 predniSONE 10 - 40 mg PO .TAPER #30 tab Home Medications: Home Meds Allopurinol [Zyloprim] 100 mg PO DAILY 11/17/18 [History] Carvedilol [Coreg] 25 mg PO BID 11/17/18 [History] Furosemide [Lasix] 20 mg PO ASDIRECTED 11/17/18 [History] Simvastatin [Zocor] 40 mg PO BEDTIME 11/17/18 [History] amLODIPine [Norvasc] 2.5 mg DAILY 11/17/18 [History] hydrALAZINE HCl [Hydralazine HCl] 75 mg PO BID 11/17/18 [History] Azithromycin 500 mg PO DAILY #5 tablet 11/18/18 [Rx] Budesonide/Formoterol [Symbicort 160-4.5 MCG] 2 puff INH BID 11/18/18 [History] glipiZIDE [Glipizide Xl] 2.5 mg PO DAILY #30 tab.er.24 11/18/18 [Rx] predniSONE 10 - 40 mg PO .TAPER #30 tab 11/18/18 [Rx] Oxygen Therapy Mode: Nasal Cannula Patient Handouts: Glipizide tablets, Hypoxia, Type 2 Diabetes Mellitus, Diagnosis, Adult, Azithromycin tablets, Type 2 Diabetes Mellitus, Self Care, Adult, Prednisone tablets, Hypoglycemia, [id number] Referrals: [facility] [Outside] Dewayne Denis MD [Primary Care Provider] - 11/28/18 9:00 am (follow up 1 week. also arrange follow up with Dm educator) - Discharge Summary/Plan Comment DC Time >30 min.: No Discharge Summary/Plan Comment: Discharge Diagnoses: Acute on chronic hypoxic respiratory failure- resolved COPD exacerbation New onset DM type 2 Hx tobacco abuse Oxygen dependent CKD HTN Alejandra was admitted and treated for COPD exacerbation with IV Solumedrol and Azithromycin. She reports she is feeling improved today and requesting discharge home. She is back to 2 L NC, no wheezing heard on exam. She reports SOB has improved. On admission, hyperglycemia noted, A1c checked and noted to be 8.6%. She will be started on Glipizide and did visit with DM educatorDianne , this morning. She will be discharged home today on her regular home medications. She will be given Prednisone taper and Azithromycin for 5 days. She is to follow up with PCP Dr Denis in 1 week as well as DM educator. She is to return to ED or clinic sooner is concerns should arise. - General Info Date of Service: 11/18/18 Admission Dx/Problem (Free Text: COPD Exacerbation Subjective Update: Feeling better today, asking to be discharged home. No SOB and denies chest pain. No wheezing and not coughing much. Functional Status: Reports: Pain Controlled, Tolerating Diet, Ambulating, Urinating - Review of Systems General: Reports: No Symptoms. Denies: Weakness, Fatigue, Malaise HEENT: Reports: No Symptoms. Denies: Headaches, Sore Throat, Visual Changes Pulmonary: Reports: Cough. Denies: Shortness of Breath, Sputum, Wheezing Cardiovascular: Reports: No Symptoms. Denies: Chest Pain, Dyspnea on Exertion Gastrointestinal: Reports: No Symptoms. Denies: Abdominal Pain, Nausea, Vomiting Genitourinary: Reports: No Symptoms Musculoskeletal: Reports: No Symptoms Skin: Reports: No Symptoms Neurological: Reports: No Symptoms Psychiatric: Reports: No Symptoms - Patient Data Vitals - Most Recent: Last Vital Signs Temp 97.2 F 11/18/18 08:00 Pulse 83 11/18/18 08:28 Resp 18 11/18/18 08:00 BP 149/70 H 11/18/18 08:30 Pulse Ox 96 11/18/18 08:00 Weight - Most Recent: 64.682 kg I&O - Last 24 hours: Intake & Output 11/17/18 11/18/18 11/18/18 22:59 06:59 14:59 Intake Total 1406 1368 Output Total 600 500 Balance 806 868 Lab Results - Last 24 hrs: Laboratory Results - last 24 hr 11/17/18 11/17/18 11/17/18 Range/Units 10:45 12:11 17:00 WBC (4.0-11.0) K/uL RBC (4.30-5.90) M/uL Hgb (12.0-16.0) g/dL Hct (36.0-46.0) % MCV (80.0-98.0) fL MCH (27.0-32.0) pg MCHC (31.0-37.0) g/dL RDW Std Deviation (28.0-62.0) fl RDW Coeff of Izabela (11.0-15.0) % Plt Count (150-400) K/uL MPV (7.40-12.00) fL Neut % (Auto) (48.0-80.0) % Lymph % (Auto) (16.0-40.0) % Falls % (Auto) (0.0-15.0) % Eos % (Auto) (0.0-7.0) % Baso % (Auto) (0.0-1.5) % Neut # (Auto) (1.4-5.7) K/uL Lymph # (Auto) (0.6-2.4) K/uL Falls # (Auto) (0.0-0.8) K/uL Eos # (Auto) (0.0-0.7) K/uL Baso # (Auto) (0.0-0.1) K/uL Nucleated RBC % /100WBC Nucleated RBCs # K/uL Sodium (136-145) mmol/L Potassium (3.5-5.1) mmol/L Chloride (98-107) mmol/L Carbon Dioxide (21.0-32.0) mmol/L BUN (7.0-18.0) mg/dL Creatinine (0.6-1.0) mg/dL Est Cr Clr Drug Dosing mL/min Estimated GFR (MDRD) ml/min Glucose (74-106) mg/dL POC Glucose 377 H 376 H (60-110) mg/dL Hemoglobin A1c 8.6 H (4.5-6.2) % Calcium (8.5-10.1) mg/dL Total Bilirubin (0.2-1.0) mg/dL AST (15-37) IU/L ALT (14-63) IU/L Alkaline Phosphatase (46-116) U/L Total Protein (6.4-8.2) g/dL Albumin (3.4-5.0) g/dL Globulin (2.6-4.0) g/dL Albumin/Globulin Ratio (0.9-1.6) 11/17/18 11/18/18 11/18/18 Range/Units 21:28 00:45 05:34 WBC 12.69 H (4.0-11.0) K/uL RBC 3.61 L (4.30-5.90) M/uL Hgb 9.9 L (12.0-16.0) g/dL Hct 32.0 L (36.0-46.0) % MCV 88.6 (80.0-98.0) fL MCH 27.4 (27.0-32.0) pg MCHC 30.9 L (31.0-37.0) g/dL RDW Std Deviation 46.8 (28.0-62.0) fl RDW Coeff of Izabela 14 (11.0-15.0) % Plt Count 333 (150-400) K/uL MPV 9.90 (7.40-12.00) fL Neut % (Auto) 90.5 H (48.0-80.0) % Lymph % (Auto) 7.5 L (16.0-40.0) % Falls % (Auto) 1.9 (0.0-15.0) % Eos % (Auto) 0.0 (0.0-7.0) % Baso % (Auto) 0.1 (0.0-1.5) % Neut # (Auto) 11.5 H (1.4-5.7) K/uL Lymph # (Auto) 1.0 (0.6-2.4) K/uL Falls # (Auto) 0.2 (0.0-0.8) K/uL Eos # (Auto) 0.0 (0.0-0.7) K/uL Baso # (Auto) 0.0 (0.0-0.1) K/uL Nucleated RBC % 0.0 /100WBC Nucleated RBCs # 0 K/uL Sodium (136-145) mmol/L Potassium (3.5-5.1) mmol/L Chloride (98-107) mmol/L Carbon Dioxide (21.0-32.0) mmol/L BUN (7.0-18.0) mg/dL Creatinine (0.6-1.0) mg/dL Est Cr Clr Drug Dosing mL/min Estimated GFR (MDRD) ml/min Glucose (74-106) mg/dL POC Glucose 452 H 293 H (60-110) mg/dL Hemoglobin A1c (4.5-6.2) % Calcium (8.5-10.1) mg/dL Total Bilirubin (0.2-1.0) mg/dL AST (15-37) IU/L ALT (14-63) IU/L Alkaline Phosphatase (46-116) U/L Total Protein (6.4-8.2) g/dL Albumin (3.4-5.0) g/dL Globulin (2.6-4.0) g/dL Albumin/Globulin Ratio (0.9-1.6) 11/18/18 11/18/18 11/18/18 Range/Units 05:34 06:19 07:29 WBC (4.0-11.0) K/uL RBC (4.30-5.90) M/uL Hgb (12.0-16.0) g/dL Hct (36.0-46.0) % MCV (80.0-98.0) fL MCH (27.0-32.0) pg MCHC (31.0-37.0) g/dL RDW Std Deviation (28.0-62.0) fl RDW Coeff of Izabela (11.0-15.0) % Plt Count (150-400) K/uL MPV (7.40-12.00) fL Neut % (Auto) (48.0-80.0) % Lymph % (Auto) (16.0-40.0) % Falls % (Auto) (0.0-15.0) % Eos % (Auto) (0.0-7.0) % Baso % (Auto) (0.0-1.5) % Neut # (Auto) (1.4-5.7) K/uL Lymph # (Auto) (0.6-2.4) K/uL Falls # (Auto) (0.0-0.8) K/uL Eos # (Auto) (0.0-0.7) K/uL Baso # (Auto) (0.0-0.1) K/uL Nucleated RBC % /100WBC Nucleated RBCs # K/uL Sodium 144 (136-145) mmol/L Potassium 4.6 (3.5-5.1) mmol/L Chloride 109 H (98-107) mmol/L Carbon Dioxide 26.9 (21.0-32.0) mmol/L BUN 41 H (7.0-18.0) mg/dL Creatinine 1.9 H (0.6-1.0) mg/dL Est Cr Clr Drug Dosing 23.44 mL/min Estimated GFR (MDRD) 26.3 ml/min Glucose 244 H (74-106) mg/dL POC Glucose 242 H 252 H (60-110) mg/dL Hemoglobin A1c (4.5-6.2) % Calcium 8.8 (8.5-10.1) mg/dL Total Bilirubin 0.1 L (0.2-1.0) mg/dL AST 11 L (15-37) IU/L ALT 14 (14-63) IU/L Alkaline Phosphatase 88 (46-116) U/L Total Protein 6.6 (6.4-8.2) g/dL Albumin 2.6 L (3.4-5.0) g/dL Globulin 4.0 (2.6-4.0) g/dL Albumin/Globulin Ratio 0.7 L (0.9-1.6) ADENIKE Results - Last 24 hrs: Microbiology 11/17/18 00:51 Aerobic Blood Culture - Preliminary Blood - Venous - Lab Draw NO GROWTH AFTER 1 DAY Anaerobic Blood Culture - Preliminary NO GROWTH AFTER 1 DAY 11/17/18 00:40 Aerobic Blood Culture - Preliminary Blood - Venous NO GROWTH AFTER 1 DAY Anaerobic Blood Culture - Preliminary NO GROWTH AFTER 1 DAY Med Orders - Current: Current Medications Acetaminophen (Tylenol) 650 mg PO Q6H PRN PRN Reason: Pain Albuterol/Ipratropium (Duoneb 3.0-0.5 Mg/3 Ml) 3 ml NEB Q4HRRT PRN PRN Reason: Wheezing Last Admin: 11/18/18 03:25 Dose: 3 ml Allopurinol (Zyloprim) 100 mg PO DAILY [facility] Last Admin: 11/18/18 08:29 Dose: 100 mg Amlodipine Besylate (Norvasc) 2.5 mg PO DAILY [facility] Last Admin: 11/18/18 08:29 Dose: 2.5 mg Carvedilol (Coreg) 25 mg PO BID [facility] Last Admin: 11/18/18 08:28 Dose: 25 mg Docusate Sodium (Colace) 100 mg PO BID PRN PRN Reason: Constipation Last Admin: 11/17/18 12:44 Dose: 100 mg Furosemide (Lasix) 20 mg PO DAILY [facility] Last Admin: 11/18/18 08:28 Dose: 20 mg Heparin Sodium (Porcine) (Heparin Sodium) 5,000 units SUBCUT Q8H [facility] Last Admin: 11/18/18 06:18 Dose: 5,000 units Hydralazine HCl (Apresoline) 75 mg PO BID [facility] Last Admin: 11/18/18 08:30 Dose: 75 mg Azithromycin 500 mg/ Sodium (Chloride) 250 mls @ 250 mls/hr IV Q24H [facility] Insulin Aspart (Novolog) 0 unit SUBCUT QIDACANDBED [facility]; Protocol Last Admin: 11/18/18 08:57 Dose: 6 units Methylprednisolone Sodium Succinate (Solu-Medrol) 125 mg IVPUSH Q8H [facility] Last Admin: 11/18/18 08:54 Dose: 125 mg Oxycodone HCl (Oxycodone) 5 mg PO Q4H PRN PRN Reason: Pain Budesonide/Formoterol 160-4.5 Mcg/Puff 6 Gm Inhaler 1 - 2 each INH BID ROSANNE Simvastatin (Zocor) 40 mg PO BEDTIME [facility] Last Admin: 11/17/18 20:23 Dose: 40 mg Temazepam (Restoril) 15 mg PO BEDTIME PRN PRN Reason: Sleep Discontinued Medications Albuterol/Ipratropium (Duoneb 3.0-0.5 Mg/3 Ml) 3 ml NEB ONETIME ONE Stop: 11/17/18 00:29 Last Admin: 11/17/18 00:37 Dose: 3 ml Budesonide/Formoterol Fumarate (Symbicort 160-4.5 Mcg) 0 gm INH BID [facility] Sodium Chloride (Normal Saline) 1,000 mls @ 125 mls/hr IV STAT [facility] Last Admin: 11/17/18 00:37 Dose: 125 mls/hr Azithromycin 500 mg/ Sodium (Chloride) 250 mls @ 250 mls/hr IV ONETIME ONE Stop: 11/17/18 03:26 Last Admin: 11/17/18 03:16 Dose: 250 mls/hr Ceftriaxone Sodium/Dextrose 1 (gm/ Premix) 50 mls @ 100 mls/hr IV ONETIME ONE Stop: 11/17/18 02:59 Last Admin: 11/17/18 02:39 Dose: 100 mls/hr Sodium Chloride (Normal Saline) 1,000 mls @ 75 mls/hr IV ASDIRECTED [facility] Last Admin: 11/18/18 03:28 Dose: 75 mls/hr Azithromycin 500 mg/ Sodium (Chloride) 250 mls @ 250 mls/hr IV Q24H [facility] Last Admin: 11/18/18 03:27 Dose: 250 mls/hr Azithromycin 500 mg/ Sodium (Chloride) 250 mls @ 250 mls/hr IV Q24H [facility] Influenza Virus Vaccine (Pharmacy To Dose - Influenza Vaccine) 1 each IM ONETIME ONE Stop: 11/17/18 02:55 Influenza Virus Vaccine (Fluzone High-Dose Syringe) 180 mcg IM .ONCE ONE Stop: 11/17/18 09:01 Last Admin: 11/17/18 12:26 Dose: 180 mcg Insulin Aspart (Novolog) 0 unit SUBCUT TIDAC [facility]; Protocol Insulin Aspart (Novolog) 0 unit SUBCUT QIDACANDBED [facility]; Protocol Methylprednisolone Sodium Succinate (Solu-Medrol) 125 mg IVPUSH ONETIME ONE Stop: 11/17/18 00:29 Last Admin: 11/17/18 00:37 Dose: 125 mg Methylprednisolone Sodium Succinate (Solu-Medrol) 125 mg IVPUSH ONETIME ONE Stop: 11/17/18 02:08 Last Admin: 11/17/18 02:14 Dose: 125 mg Morphine Sulfate (Morphine) 0.5 mg IVPUSH ONETIME ONE Stop: 11/17/18 02:08 Last Admin: 11/17/18 02:14 Dose: 0.5 mg Pneumococcal Polyvalent Vaccine (Pneumovax 23) 0.5 ml IM .ONCE ONE Stop: 11/17/18 09:01 Last Admin: 11/17/18 12:23 Dose: 0.5 ml - Exam General: Reports: Alert, Oriented, Cooperative, No Acute Distress Neck: Reports: Supple Lungs: Reports: Clear to Auscultation, Normal Respiratory Effort Cardiovascular: Reports: Regular Rate, Regular Rhythm GI/Abdominal Exam: Normal Bowel Sounds, Soft, Non-Tender Extremities: Normal Inspection, Normal Range of Motion, Non-Tender Neurological: Reports: No New Focal Deficit Psy/Mental Status: Reports: Alert, Normal Affect, Normal Mood <Brennan Wright - Last Filed: 11/18/18 11:02> Discharge Summary - Hospital Course Free Text/Narrative:: I have seen and examined the patient independently of Cyn Dodd CNP. I have discuss the case with her. I agree with the assessment and plan of care as outlined by her. Please see orders. - Discharge Diagnosis/Problem(s) (1) Acute on chronic respiratory failure SNOMED Code(s): 85646120 ICD Code: J96.20 - ACUTE AND CHR RESP FAILURE, UNSP W HYPOXIA OR HYPERCAPNIA Status: Acute Priority: High Current Visit: Yes Qualifiers: Respiratory failure complication: hypoxia Qualified Code(s): J96.21 - Acute and chronic respiratory failure with hypoxia (2) Hyperglycemia SNOMED Code(s): 11012922 ICD Code: R73.9 - HYPERGLYCEMIA, UNSPECIFIED Status: Acute Priority: High Current Visit: Yes (3) COPD exacerbation SNOMED Code(s): 336620530 ICD Code: J44.1 - CHRONIC OBSTRUCTIVE PULMONARY DISEASE W (ACUTE) EXACERBATION Status: Chronic Priority: High Current Visit: Yes (4) Hypoxia SNOMED Code(s): 653321688 ICD Code: R09.02 - HYPOXEMIA Status: Acute Current Visit: Yes - Patient Summary/Data Consults: Consultations 11/18/18 06:53 Consult to [employer]'S Assistant [Consult to Diabetic Nurse Specialist] [CONS] Routine - Patient Data Vitals - Most Recent: Last Vital Signs Temp 36.2 C 11/18/18 08:00 Pulse 83 11/18/18 08:28 Resp 18 11/18/18 08:00 BP 149/70 H 11/18/18 08:30 Pulse Ox 96 11/18/18 08:00 I&O - Last 24 hours: Intake & Output 11/17/18 11/18/18 11/18/18 22:59 06:59 14:59 Intake Total 1406 1368 Output Total 600 500 Balance 806 868 Lab Results - Last 24 hrs: Laboratory Results - last 24 hr 11/17/18 11/17/18 11/17/18 Range/Units 12:11 17:00 21:28 WBC (4.0-11.0) K/uL RBC (4.30-5.90) M/uL Hgb (12.0-16.0) g/dL Hct (36.0-46.0) % MCV (80.0-98.0) fL MCH (27.0-32.0) pg MCHC (31.0-37.0) g/dL RDW Std Deviation (28.0-62.0) fl RDW Coeff of Izabela (11.0-15.0) % Plt Count (150-400) K/uL MPV (7.40-12.00) fL Neut % (Auto) (48.0-80.0) % Lymph % (Auto) (16.0-40.0) % Falls % (Auto) (0.0-15.0) % Eos % (Auto) (0.0-7.0) % Baso % (Auto) (0.0-1.5) % Neut # (Auto) (1.4-5.7) K/uL Lymph # (Auto) (0.6-2.4) K/uL Falls # (Auto) (0.0-0.8) K/uL Eos # (Auto) (0.0-0.7) K/uL Baso # (Auto) (0.0-0.1) K/uL Nucleated RBC % /100WBC Nucleated RBCs # K/uL Sodium (136-145) mmol/L Potassium (3.5-5.1) mmol/L Chloride (98-107) mmol/L Carbon Dioxide (21.0-32.0) mmol/L BUN (7.0-18.0) mg/dL Creatinine (0.6-1.0) mg/dL Est Cr Clr Drug Dosing mL/min Estimated GFR (MDRD) ml/min Glucose (74-106) mg/dL POC Glucose 377 H 376 H 452 H (60-110) mg/dL Calcium (8.5-10.1) mg/dL Total Bilirubin (0.2-1.0) mg/dL AST (15-37) IU/L ALT (14-63) IU/L Alkaline Phosphatase (46-116) U/L Total Protein (6.4-8.2) g/dL Albumin (3.4-5.0) g/dL Globulin (2.6-4.0) g/dL Albumin/Globulin Ratio (0.9-1.6) 11/18/18 11/18/18 11/18/18 Range/Units 00:45 05:34 05:34 WBC 12.69 H (4.0-11.0) K/uL RBC 3.61 L (4.30-5.90) M/uL Hgb 9.9 L (12.0-16.0) g/dL Hct 32.0 L (36.0-46.0) % MCV 88.6 (80.0-98.0) fL MCH 27.4 (27.0-32.0) pg MCHC 30.9 L (31.0-37.0) g/dL RDW Std Deviation 46.8 (28.0-62.0) fl RDW Coeff of Izabela 14 (11.0-15.0) % Plt Count 333 (150-400) K/uL MPV 9.90 (7.40-12.00) fL Neut % (Auto) 90.5 H (48.0-80.0) % Lymph % (Auto) 7.5 L (16.0-40.0) % Falls % (Auto) 1.9 (0.0-15.0) % Eos % (Auto) 0.0 (0.0-7.0) % Baso % (Auto) 0.1 (0.0-1.5) % Neut # (Auto) 11.5 H (1.4-5.7) K/uL Lymph # (Auto) 1.0 (0.6-2.4) K/uL Falls # (Auto) 0.2 (0.0-0.8) K/uL Eos # (Auto) 0.0 (0.0-0.7) K/uL Baso # (Auto) 0.0 (0.0-0.1) K/uL Nucleated RBC % 0.0 /100WBC Nucleated RBCs # 0 K/uL Sodium 144 (136-145) mmol/L Potassium 4.6 (3.5-5.1) mmol/L Chloride 109 H (98-107) mmol/L Carbon Dioxide 26.9 (21.0-32.0) mmol/L BUN 41 H (7.0-18.0) mg/dL Creatinine 1.9 H (0.6-1.0) mg/dL Est Cr Clr Drug Dosing 23.44 mL/min Estimated GFR (MDRD) 26.3 ml/min Glucose 244 H (74-106) mg/dL POC Glucose 293 H (60-110) mg/dL Calcium 8.8 (8.5-10.1) mg/dL Total Bilirubin 0.1 L (0.2-1.0) mg/dL AST 11 L (15-37) IU/L ALT 14 (14-63) IU/L Alkaline Phosphatase 88 (46-116) U/L Total Protein 6.6 (6.4-8.2) g/dL Albumin 2.6 L (3.4-5.0) g/dL Globulin 4.0 (2.6-4.0) g/dL Albumin/Globulin Ratio 0.7 L (0.9-1.6) 11/18/18 11/18/18 Range/Units 06:19 07:29 WBC (4.0-11.0) K/uL RBC (4.30-5.90) M/uL Hgb (12.0-16.0) g/dL Hct (36.0-46.0) % MCV (80.0-98.0) fL MCH (27.0-32.0) pg MCHC (31.0-37.0) g/dL RDW Std Deviation (28.0-62.0) fl RDW Coeff of Izbaela (11.0-15.0) % Plt Count (150-400) K/uL MPV (7.40-12.00) fL Neut % (Auto) (48.0-80.0) % Lymph % (Auto) (16.0-40.0) % Falls % (Auto) (0.0-15.0) % Eos % (Auto) (0.0-7.0) % Baso % (Auto) (0.0-1.5) % Neut # (Auto) (1.4-5.7) K/uL Lymph # (Auto) (0.6-2.4) K/uL Falls # (Auto) (0.0-0.8) K/uL Eos # (Auto) (0.0-0.7) K/uL Baso # (Auto) (0.0-0.1) K/uL Nucleated RBC % /100WBC Nucleated RBCs # K/uL Sodium (136-145) mmol/L Potassium (3.5-5.1) mmol/L Chloride (98-107) mmol/L Carbon Dioxide (21.0-32.0) mmol/L BUN (7.0-18.0) mg/dL Creatinine (0.6-1.0) mg/dL Est Cr Clr Drug Dosing mL/min Estimated GFR (MDRD) ml/min Glucose (74-106) mg/dL POC Glucose 242 H 252 H (60-110) mg/dL Calcium (8.5-10.1) mg/dL Total Bilirubin (0.2-1.0) mg/dL AST (15-37) IU/L ALT (14-63) IU/L Alkaline Phosphatase (46-116) U/L Total Protein (6.4-8.2) g/dL Albumin (3.4-5.0) g/dL Globulin (2.6-4.0) g/dL Albumin/Globulin Ratio (0.9-1.6) ADENIKE Results - Last 24 hrs: Microbiology 11/17/18 00:51 Aerobic Blood Culture - Preliminary Blood - Venous - Lab Draw NO GROWTH AFTER 1 DAY Anaerobic Blood Culture - Preliminary NO GROWTH AFTER 1 DAY 11/17/18 00:40 Aerobic Blood Culture - Preliminary Blood - Venous NO GROWTH AFTER 1 DAY Anaerobic Blood Culture - Preliminary NO GROWTH AFTER 1 DAY Med Orders - Current: Current Medications Acetaminophen (Tylenol) 650 mg PO Q6H PRN PRN Reason: Pain Albuterol/Ipratropium (Duoneb 3.0-0.5 Mg/3 Ml) 3 ml NEB Q4HRRT PRN PRN Reason: Wheezing Last Admin: 11/18/18 03:25 Dose: 3 ml Allopurinol (Zyloprim) 100 mg PO DAILY [facility] Last Admin: 11/18/18 08:29 Dose: 100 mg Amlodipine Besylate (Norvasc) 2.5 mg PO DAILY [facility] Last Admin: 11/18/18 08:29 Dose: 2.5 mg Carvedilol (Coreg) 25 mg PO BID [facility] Last Admin: 11/18/18 08:28 Dose: 25 mg Docusate Sodium (Colace) 100 mg PO BID PRN PRN Reason: Constipation Last Admin: 11/17/18 12:44 Dose: 100 mg Furosemide (Lasix) 20 mg PO DAILY [facility] Last Admin: 11/18/18 08:28 Dose: 20 mg Heparin Sodium (Porcine) (Heparin Sodium) 5,000 units SUBCUT Q8H [facility] Last Admin: 11/18/18 06:18 Dose: 5,000 units Hydralazine HCl (Apresoline) 75 mg PO BID [facility] Last Admin: 11/18/18 08:30 Dose: 75 mg Azithromycin 500 mg/ Sodium (Chloride) 250 mls @ 250 mls/hr IV Q24H [facility] Insulin Aspart (Novolog) 0 unit SUBCUT QIDACANDBED [facility]; Protocol Last Admin: 11/18/18 08:57 Dose: 6 units Methylprednisolone Sodium Succinate (Solu-Medrol) 125 mg IVPUSH Q8H [facility] Last Admin: 11/18/18 08:54 Dose: 125 mg Oxycodone HCl (Oxycodone) 5 mg PO Q4H PRN PRN Reason: Pain Budesonide/Formoterol 160-4.5 Mcg/Puff 6 Gm Inhaler 1 - 2 each INH BID [facility] Last Admin: 11/18/18 10:22 Dose: Not Given Simvastatin (Zocor) 40 mg PO BEDTIME [facility] Last Admin: 11/17/18 20:23 Dose: 40 mg Temazepam (Restoril) 15 mg PO BEDTIME PRN PRN Reason: Sleep Discontinued Medications Albuterol/Ipratropium (Duoneb 3.0-0.5 Mg/3 Ml) 3 ml NEB ONETIME ONE Stop: 11/17/18 00:29 Last Admin: 11/17/18 00:37 Dose: 3 ml Budesonide/Formoterol Fumarate (Symbicort 160-4.5 Mcg) 0 gm INH BID [facility] Sodium Chloride (Normal Saline) 1,000 mls @ 125 mls/hr IV STAT [facility] Last Admin: 11/17/18 00:37 Dose: 125 mls/hr Azithromycin 500 mg/ Sodium (Chloride) 250 mls @ 250 mls/hr IV ONETIME ONE Stop: 11/17/18 03:26 Last Admin: 11/17/18 03:16 Dose: 250 mls/hr Ceftriaxone Sodium/Dextrose 1 (gm/ Premix) 50 mls @ 100 mls/hr IV ONETIME ONE Stop: 11/17/18 02:59 Last Admin: 11/17/18 02:39 Dose: 100 mls/hr Sodium Chloride (Normal Saline) 1,000 mls @ 75 mls/hr IV ASDIRECTED [facility] Last Admin: 11/18/18 03:28 Dose: 75 mls/hr Azithromycin 500 mg/ Sodium (Chloride) 250 mls @ 250 mls/hr IV Q24H [facility] Last Admin: 11/18/18 03:27 Dose: 250 mls/hr Azithromycin 500 mg/ Sodium (Chloride) 250 mls @ 250 mls/hr IV Q24H [facility] Last Admin: 11/18/18 10:04 Dose: Not Given Influenza Virus Vaccine (Pharmacy To Dose - Influenza Vaccine) 1 each IM ONETIME ONE Stop: 11/17/18 02:55 Influenza Virus Vaccine (Fluzone High-Dose 2017- Syringe) 180 mcg IM .ONCE ONE Stop: 11/17/18 09:01 Last Admin: 11/17/18 12:26 Dose: 180 mcg Insulin Aspart (Novolog) 0 unit SUBCUT TIDAC [facility]; Protocol Insulin Aspart (Novolog) 0 unit SUBCUT QIDACANDBED [facility]; Protocol Methylprednisolone Sodium Succinate (Solu-Medrol) 125 mg IVPUSH ONETIME ONE Stop: 11/17/18 00:29 Last Admin: 11/17/18 00:37 Dose: 125 mg Methylprednisolone Sodium Succinate (Solu-Medrol) 125 mg IVPUSH ONETIME ONE Stop: 11/17/18 02:08 Last Admin: 11/17/18 02:14 Dose: 125 mg Morphine Sulfate (Morphine) 0.5 mg IVPUSH ONETIME ONE Stop: 11/17/18 02:08 Last Admin: 11/17/18 02:14 Dose: 0.5 mg Pneumococcal Polyvalent Vaccine (Pneumovax 23) 0.5 ml IM .ONCE ONE Stop: 11/17/18 09:01 Last Admin: 11/17/18 12:23 Dose: 0.5 ml
--- NOTE | 2018-11-18 17:28 | CR ---
EXAM DATE: 11/17/18 PATIENT'S AGE: 68 Patient: VALE LAWSON Facility: [place], [place] Site . Site : 1950 Study: XRay Chest [id number] 12:46:56 AM Ordering Physician: Joya Villeda Final Report: HISTORY: Shortness of breath COMPARISON: None available FINDINGS: A portable erect AP view of the chest was obtained at 0040 hours. There is blurring of the right heart border with increased density, either a right middle lobe infiltrate or a prominent right pericardial fat pad. The rest of the chest is clear. The mediastinum is normal in appearance. The osseous structures are normal in appearance for the patient`s age. IMPRESSION: BLURRING OF THE RIGHT HEART BORDER WITH INCREASED DENSITY, EITHER A RIGHT MIDDLE LOBE INFILTRATE OR A PROMINENT RIGHT PERICARDIAL FAT PAD. Dictated by Alberto Ferreira MD @ Nov 17 2018 12:55AM (Electronic Signature) Report Signed by Proxy. [place]
[2018-11-19] MEDS ORDERED: Azithromycin 500 MG in Sodium Chloride 0.9% 250 ML IV SCH (03:00)
== END 2018-11-18 11:00 | disposition home or self-care (01) ==
LOC: MW.ED 00:21 → MW.MS 01:40
PROVIDERS: ADMIT Internal Medicine; ATTEND Internal Medicine
DX: J44.1 Chronic obstructive pulmonary disease with (acute) exacerbation (principal); J96.11 Chronic respiratory failure with hypoxia; I12.9 Hypertensive chronic kidney disease with stage 1 through stage 4 chronic kidney disease, or unspecified chronic kidney disease; E11.22 Type 2 diabetes mellitus with diabetic chronic kidney disease; E11.65 Type 2 diabetes mellitus with hyperglycemia; N18.9 Chronic kidney disease, unspecified; Z87.891 Personal history of nicotine dependence; Z99.81 Dependence on supplemental oxygen; Z79.899 Other long term (current) drug therapy
CPT/HCPCS: 36415; 71045; 80053; 81001; 82962; 83036; 83880; 84484; 85025; 85610; 87040; 90471; 90662; 90732; 93005; 94640; 96361; 96374; 96375; 96376; 99285; A9270; J0456; J0696; J1644; J1815; J2270; J2930; J7040; J7050; 96372; 99284; G0008; G0378; J7620-GY

== ENCOUNTER 2024-07-28 21:25 | Emergency (ER) | payer MEDICARE, OTHER ==
[2024-07-28] MEDS: Ondansetron 4 MG/2 ML SDV IVPUSH ONE (21:53)
[2024-07-28] MEDS: Morphine 4 MG/ML Syringe IVPUSH ONE (21:53)
[2024-07-28] MEDS: Sodium Chloride 0.9% 10 ML Syringe FLUSH PRN (21:57)
[2024-07-28] MEDS: Sodium Chloride 0.9% 2.5 ML Syringe FLUSH PRN (21:57)
[2024-07-28 22:00] LABS: BASOPHILS ABSOLUTE AUTO 0.06 K/uL (0.00-0.20); BASOPHILS PERCENT AUTO 0.6 % (0.0-1.0); EOSINOPHILS ABSOLUTE AUTO 0.33 K/uL (0.00-0.45); EOSINOPHILS PERCENT AUTO 3.3 % (0.0-6.0); HEMATOCRIT 33.9 % (37.0-47.0); HEMOGLOBIN 11.1 g/dL (12.0-16.0); IMMATURE GRAN ABSOLUTE AUTO 0.07 K/uL (0.00-0.05); IMMATURE GRAN PERCENT AUTO 0.7 % (0.0-0.4); LYMPHOCYTES ABSOLUTE AUTO 1.25 K/uL (1.00-4.80); LYMPHOCYTES PERCENT AUTO 12.6 % (24.0-44.0); MEAN CORPUSCULAR HEMOGLOBIN 29.1 pg (28.0-32.0); MEAN CORPUSCULAR HGB CONC 32.7 g/dL (32.0-36.0); MEAN PLATELET VOLUME 9.6 fL (9.4-12.3); MONOCYTES ABSOLUTE AUTO 0.89 K/uL (0.00-0.80); NEUTROPHILS ABSOLUTE AUTO 7.32 K/uL (1.80-7.70); NEUTROPHILS PERCENT AUTO 73.8 % (41.0-71.0); PLATELET COUNT,PLT 249 K/uL (150-400); RED BLOOD CELL COUNT 3.81 M/uL (4.10-5.30); WHITE BLOOD CELL COUNT,WBC 9.92 K/uL (3.9-11.3)
[2024-07-28 22:21] LABS: A/G RATIO 1.1 (0.9-1.6); ALBUMIN 3.7 g/dL (3.4-5.0); BILIRUBIN TOTAL 0.3 mg/dL (0.2-1.0); CALCIUM 9.8 mg/dL (8.5-10.1); CARBON DIOXIDE,CO2 31.3 mmol/L (21.0-32.0); CREATININE 2.1 mg/dL (0.6-1.0); EST CRCL DRUG DOSING (CG) 19.74 mL/min; POTASSIUM,K 3.8 mmol/L (3.5-5.1); PROTEIN TOTAL,TP 7.1 g/dL (6.4-8.2)
[2024-07-28 23:28] LABS: APPEARANCE,URINE CLEAR; BILIRUBIN,URINE NEGATIVE (NEGATIVE); COLOR,URINE YELLOW; GLUCOSE,URINE NEGATIVE (NEGATIVE); KETONES,URINE NEGATIVE (NEGATIVE); LEUKOCYTE ESTERASE,URINE NEGATIVE (NEGATIVE); NITRITE,URINE NEGATIVE (NEGATIVE); OCCULT BLOOD,URINE NEGATIVE (NEGATIVE); PH,URINE 6.5 (5.0-8.0); PROTEIN,URINE 30 mg/dL (NEGATIVE); UROBILINOGEN,URINE 0.2 EU/dL (<2.0)
[2024-07-29 00:10] LABS: BACTERIA,URINE FEW (NEGATIVE); EPITHELIAL CELLS,URINE FEW (NONE-FEW); RBC,URINE 0-1 (0-2/HPF); WBC,URINE 0-1 (0-5/HPF)
[2024-07-29 00:11] LABS: MUCUS,URINE LIGHT (NONE-MOD)
[2024-07-29] MEDS: Amoxicillin/Clavulanate K 875-125 MG Tab PO ONE (00:22)
[2024-07-29] MEDS: Doxycycline 100 MG Cap PO ONE (00:22)
== END 2024-07-29 00:27 | disposition home or self-care (01) ==
LOC: MW.ED 21:25
DX: I71.40 Abdominal aortic aneurysm, without rupture, unspecified (principal); M54.50 Low back pain, unspecified; R91.8 Other nonspecific abnormal finding of lung field; I10 Essential (primary) hypertension; E78.00 Pure hypercholesterolemia, unspecified; Z79.899 Other long term (current) drug therapy; Z90.49 Acquired absence of other specified parts of digestive tract; Z75.8 Other problems related to medical facilities and other health care
CPT/HCPCS: 36415; 74176; 80053; 81001; 85025; 96374; 96375; 99284; A9270; J2270; J2405; J3490

== ENCOUNTER 2025-02-09 20:01 | Emergency (ER) | payer MEDICARE, OTHER ==
[2025-02-09] MEDS: Acetaminophen/HYDROcodone 325-5 MG Tab PO ONE (22:09)
== END 2025-02-10 00:10 | disposition home or self-care (01) ==
LOC: MW.ED 20:01
DX: S32.049A Unspecified fracture of fourth lumbar vertebra, initial encounter for closed fracture (principal); J44.9 Chronic obstructive pulmonary disease, unspecified; M89.9 Disorder of bone, unspecified; C79.9 Secondary malignant neoplasm of unspecified site; I10 Essential (primary) hypertension; E78.00 Pure hypercholesterolemia, unspecified; Z95.5 Presence of coronary angioplasty implant and graft; Z79.899 Other long term (current) drug therapy; Z90.49 Acquired absence of other specified parts of digestive tract; Z87.891 Personal history of nicotine dependence; W18.39XA Other fall on same level, initial encounter; Y93.89 Activity, other specified
CPT/HCPCS: 72128; 72131; 99285; A9270; 99283